=== PATIENT | male | born 1995 | race Caucasian/White ===

== ENCOUNTER → 2024-08-23 14:43 | Outpatient (REF) | payer OTHER, SELFPAY | LOC: HWRAD 14:43 | PROVIDERS: ATTENDING PHYSICIAN Physician Assistant | DX: R10.9 Unspecified abdominal pain (principal) | CPT/HCPCS: 76700 ==

== ENCOUNTER → 2024-10-12 13:57 | Outpatient (REF) | payer OTHER, SELFPAY | LOC: HWRAD 13:57 | PROVIDERS: ATTENDING PHYSICIAN Physician Assistant | DX: R10.9 Unspecified abdominal pain (principal) | CPT/HCPCS: 71101; 72110 ==

== ENCOUNTER 2025-01-17 14:23 | Emergency (ER) | payer OTHER, SELFPAY ==
[2025-01-17 14:30] VITALS: BP 139/91
[2025-01-17 14:54] LABS: Hematocrit 43.4 % (39.0-52.0); Hemoglobin 14.9 g/dL (13.0-18.0); Mean Corp Hgb Conc. 34.3 g/dL (33.0-37.0); Mean Corpuscular Volume 91.8 fL (80.0-94.0); Platelet Count 123 10^3/uL (130-400); Red Cell Dist. Width 12.4 % (11.5-14.5)
[2025-01-17 14:57] LABS: ALT (SGPT) 37 U/L (0-50); AST (SGOT) 27 U/L (17-59); Albumin 4.9 g/dl (3.5-5.0); Alkaline Phosphatase 61 U/L (38-126); Blood Urea Nitrogen 11 mg/dl (9-20); Calcium 9.6 mg/dl (8.4-10.2); Carbon Dioxide 28 mmol/L (22-30); Chloride 106 mmol/L (98-107); Glucose 105 mg/dl (70-99); Potassium 4.0 mmol/L (3.5-5.1); Sodium 140 mmol/L (135-145); Total Protein 7.4 g/dl (6.3-8.2); eGFR > 60.00
--- NOTE | 2025-01-17 15:04 | ED.GENMED ---
History of Present Illness
General
Chief Complaint: Chest Pain
Source: patient
Exam Limitations: none
Time Seen by Provider: 01/17/25 15:03
History of Present Illness
History of Present Illness:
29yoM with a history of hypertension, hyperlipidemia, and migraines presenting for evaluation of chest pain. Patient reports left-sided chest discomfort over the past several days. Symptoms began 2 days after doing a chest workout so he thought he
may have pulled a muscle. He started to experience discomfort in his left arm. Pain feels like a 'nerve pain' with intermittent shocks down the arm. His arm pain is worse with certain positions, specifically if he leans on it. He denies any
shortness of breath, dizziness, syncope, nausea, leg swelling. He was seen at urgent care prior to arrival and sent to the ED for evaluation. Patient exercises regularly and denies any exertional chest pain. Patient's father has a history of CHF.
He is scheduled to see cardiology at the end of January for hyperlipidemia. He was previously on a statin which were discontinued due to side effects. No tobacco use.
Past History
Past History
ED Past Medical History: Other (migraines); Negative Asthma, HTN, Hypercholesterolemia or NIDDM
ED Past Surgical History: None
Social History
Tobacco: Non-smoker
Alcohol: Occasional
Drug: None
Personal: Single
Living: with family
Employment: Employed (communication consultant)
Family History
Family History: Other (Reviewed and Noncontributory)
Phy Exam
General Physical Exam
General Presentation: well appearing and no apparent distress
General Skin: warm and dry
General Habitus: normal
General Mental: alert
ENT Exam
ENT Exam: normocephalic
Cardiovascular Exam
Cardiovascular Exam: regular rate/rhythm, no edema and no murmur
Pulmonary Exam
Pulmonary Exam: lungs clear, no respiratory distress, no rales, no crackles, no rhonchi and no wheezing
Neurological Exam
Neurological Exam: alert
[place] Coma Scale
Eye Opening: Spontaneous
Verbal Response: Oriented
Motor Response: Obeys Commands
GCS Total Score: 15
Skin Exam
Skin Exam: normal color and warm/dry
Psychiatric Exam
Psychiatric Exam: normal mood/affect
Scores
Heart Score for Chest Pain Patients
STEMI patient?: No
History: Slightly or Non-Suspicious
ECG: Normal
Age: </= 45 years
Risk Factors: 1 or 2 Risk Factors
Troponin: </= Normal Limit
Heart Score for Chest Pain Patients: 1
Heart Score Risk: 2.5% MACE over next 6 weeks
Course
Orders/Labs/Results
Orders:
Orders
01/17/25 14:26
Electrocardiogram (*1) Urgent
Reason for Study: Chest Pain
EKG- Treatment ONCE
01/17/25 14:35
Complete Blood Count/With Diff Urgent
Comprehensive Metabolic Panel Urgent
Troponin I Urgent
01/17/25 15:12
CR Chest - 2 Views Urgent
Comment:
Reason For Exam: CP
Abnormal Lab Results
01/17/25
14:35
MCH 31.5 H pg
(27.0-31.0)
Plt Count 123 L 10^3/uL
(130-400)
MPV 12.9 H fL
(7.4-10.4)
Absolute Monos (auto) 0.8 H 10^3/uL
(0.1-0.6)
Monocytes % 15.0 H %
(1.7-9.3)
Glucose 105 H mg/dl
(70-99)
01/17/25 14:35
01/17/25 14:35
Vital Signs
Initial and Last Documented VS:
Initial Vital Signs
Temp Pulse Resp BP Pulse Ox
97.5 F 76 18 139/91 99
01/17/25 14:30 01/17/25 14:30 01/17/25 14:30 01/17/25 14:30 01/17/25 14:30
Last Documented Vital Signs
Temp Pulse Resp BP Pulse Ox
97.5 F 76 18 139/91 99
01/17/25 14:30 01/17/25 14:30 01/17/25 14:30 01/17/25 14:30 01/17/25 15:04
MDM/Problems Addressed
Differential Diagnosis Includes:
29yoM here with chest pain x several days. Also having intermittent shooting pains in L arm. VSS. He is well-appearing no acute distress. Exam reassuring. Differential diagnosis includes but is not limited to: Musculoskeletal, radiculopathy,
pneumonia, pneumothorax, less likely ACS, doubt PE
Initial ED plan: EKG obtained in triage which shows normal sinus rhythm without ischemic changes. Will check cardiac labs and chest x-ray.
*Pulse Oximetry
SaO2: 99
Oxygen Mode of Delivery: Room air
Patient hypoxic: no (99%)
*EKG
Interpreted by ED Provider?: Yes
EKG Intrepretation Date: 01/17/25
Heart Rate: 61
Rate: normal
Rhythm: sinus
Coleman: normal axis
Interval: normal interval
QRS Pattern: normal QRS
Ischemia: no ischemia
*Critical Care Note
Total Time (30-74mins, 75-104mins- exclusive of procedures): Not Applicable
Update Note
Update Note:
Labs unremarkable and troponin undetectable. Chest x-ray is clear. HEART score is 1 for history of hypertension. No indication for hospitalization. He was advised to f/u with his PCP. He also has an appt with cardiology scheduled in 1 month.
ED return precautions reviewed. Patient in agreement with plan and was discharged in stable condition.
ED Attending Note
-
Portions of this chart may have been created with voice recognition software.� Occasional wrong word or��sound alike� substitutions may have occurred due to the inherent limitations of voice recognition software.
Discharge Plan
Departure
Patient Disposition: Home (Routine Discharge)
Date of Disposition: 01/17/25
Time of Disposition: 16:17
Patient with high blood pressure during this ER visit?: Yes
Discharge Problem:
Atypical chest pain
Instructions: Chest pain (DC)
Prescriptions:
No Action
naproxen 500 MG tablet
500 mg PO BID Qty: 14 1RF
Rx Instructions:
Take with food.
Referrals:
Dinorah Mancilla PA-C [Family Provider, Family Practice]
Activity Restrictions/Additional Instructions:
Please follow-up with your family doctor as well as cardiology as previously scheduled. Return to the ER with any new or worsening symptoms.
Interventions
Interventions:
*Risk Screen - Suicide Last Done: 01/17/25 14:30
*General Assessment Last Done: 01/17/25 14:30
*Neglect/Abuse Screening Last Done: 01/17/25 14:30
*ED- Fall Risk Assessment Last Done: 01/17/25 16:31
*ED COVID-19 Vaccine History Last Done: 01/17/25 16:31
*Nursing Disposition Last Done: 01/17/25 16:31
ED- Cardiac Assessment Last Done: 01/17/25 16:32
Discharge Date and Time
Discharge Date/Time: 01/17/25 16:32
Print Language: [email or web address]
[2025-01-17 15:07] LABS: Troponin I < 0.012 ng/ml
[2025-01-17 15:43] LABS: Nucleated Red Blood Cells % 0 % (-)
== END 2025-01-17 16:32 | disposition home or self-care (01) ==
LOC: EMR 14:23
PROVIDERS: EMERGENCY PHYSICIAN Emergency Medicine; FAMILY PHYSICIAN Physician Assistant
DX: R07.89 Other chest pain (principal); I10 Essential (primary) hypertension; E78.5 Hyperlipidemia, unspecified
CPT/HCPCS: 99285; 71046; 80053; 84484; 85025; 93005